=== PATIENT | male | born 1945 | race African-American/Black ===

== ENCOUNTER 2019-08-23 09:18 | Outpatient (CLI) | payer MEDICARE, BC ==
[~2019-08-23] VITALS: Ht 170.2 cm; Wt 67.1 kg
[2019-08-23 09:50] VITALS: BP 134/55
[2019-08-23] MEDS ORDERED: METOPROLOL SUCC50 MG ORAL (16:31)
[2019-08-23] MEDS ORDERED: HYDRALAZINE HCL50 MG ORAL (16:31)
[2019-08-23] MEDS ORDERED: NITRO0.4 SL (16:31)
[2019-08-23] MEDS ORDERED: SPIRONOLACTONE50 MG ORAL (16:31)
[2019-08-23] MEDS ORDERED: CLOPIDOGREL75 MG ORAL (16:31)
[2019-08-23] MEDS ORDERED: NORCO 5-325 TA1 EACH ORAL (16:31)
[2019-08-23] MEDS ORDERED: PRAVACHOL40 MG ORAL (16:31)
[2019-08-23] MEDS ORDERED: RASUVO INJ (16:31)
[2019-08-23] MEDS ORDERED: FORTEO2.4 ML SUBQ (16:31)
--- NOTE | 2019-08-23 18:30 | Consultation ---
DATE OF CONSULTATION: 08/23/2019 GASTROENTEROLOGY CONSULTATION CONSULTING PHYSICIAN: Monroe Arredondo M.D. REFERRING PHYSICIAN: . CHIEF COMPLAINT: Referral for screening colonoscopy, history of Cologuard positive. Last colonoscopy was 10 years ago. PAST MEDICAL HISTORY: 1. Hypertension. 2. Coronary artery disease. 3. DVT. 4. TIA. PAST SURGICAL HISTORY: The patient had a cardiac stent placement and multiple orthopedic surgeries. MEDICATIONS: Please see a long medication reconciliation list. FAMILY HISTORY: Noncontributory. SOCIAL HISTORY: The patient denies any tobacco, alcohol, or drug abuse. ALLERGIES: No known allergies. REVIEW OF SYSTEMS: A 10-point review of systems was performed and no acute GI findings. PHYSICAL EXAMINATION: VITAL SIGNS: Temperature 98.2, blood pressure is 134/55, pulse is 60, respirations 20. HEENT: Normocephalic and atraumatic. Sclerae anicteric. NECK: Supple. No evidence of obvious lymphadenopathy. CARDIOVASCULAR: Regular rate and rhythm. Plus S1 and S2. LUNGS: Clear to auscultation bilaterally. ABDOMEN: Positive bowel sounds. Soft and nontender. No rebound. No guarding. No peritoneal sign. EXTREMITIES: No cyanosis. No clubbing. No edema. ASSESSMENT AND PLAN: This is a 73-year-old male, who was referred to us for evaluation for colonoscopy. He has a positive Cologuard test. Last colonoscopy was 10 years ago. The patient was given the instruction for colonoscopy, the risks and benefits of procedure were explained to him. The patient was instructed to stop the Plavix three days before the procedure. The patient was scheduled for 08/31/2019 for colonoscopy. I want to thank, for this kind referral. Monroe Arredondo M.D. DR: NEIL JOB#: [id number] CC:
== END 2019-08-23 14:17 | disposition home or self-care (01) ==
LOC: PAN 09:18
DX: R19.5 Other fecal abnormalities (principal); Z95.5 Presence of coronary angioplasty implant and graft; I11.9 Hypertensive heart disease without heart failure; I25.10 Atherosclerotic heart disease of native coronary artery without angina pectoris; Z86.718 Personal history of other venous thrombosis and embolism; Z86.73 Personal history of transient ischemic attack (TIA), and cerebral infarction without residual deficits

== ENCOUNTER 2019-09-14 13:17 | Outpatient (CLI) | payer MEDICARE, BC ==
[~2019-09-14 13:17] MED LIST: CLOPIDOGREL75 MG ORAL; FORTEO2.4 ML SUBQ; HYDRALAZINE HCL50 MG ORAL; METOPROLOL SUCC50 MG ORAL; NITRO0.4 SL; NORCO 5-325 TA1 EACH ORAL; PRAVACHOL40 MG ORAL; RASUVO INJ; SPIRONOLACTONE50 MG ORAL
--- NOTE | 2019-09-14 13:46 | General Progress Note ---
Assessment/Plan Assessment/Plan: s/p colonoscopy: SUMMARY OF FINDINGS: 1. Two colonic polyps removed, see above for details. 2. Large internal hemorrhoids. plan repeat colonoscopy in 5 years Subjective ROS Limited/Unobtainable: Yes Allergies: Coded Allergies: MORPHINE (Verified Allergy, Mild, Rash, 08/23/19) Objective General Appearance: alert EENT: normal ENT inspection Neck: supple Cardiovascular: normal rate Respiratory/Chest: decreased breath sounds Abdomen: normal bowel sounds, non tender, soft Extremities: non-tender Monroe Arredondo MD Sep 14, 2019 13:46
[2019-09-14 15:26] VITALS: BP 140/63
== END 2019-09-14 15:17 | disposition home or self-care (01) ==
LOC: PAN 13:17
DX: K63.5 Polyp of colon (principal); K64.8 Other hemorrhoids; Z88.6 Allergy status to analgesic agent
CPT/HCPCS: 99212